=== PATIENT | male | born 1965 | race Caucasian/White ===

== ENCOUNTER 2016-11-13 04:56 | Emergency (ER) | payer OTHER ==
[~2016-11-13] VITALS: Ht 175.3 cm; Wt 74.8 kg
[2016-11-13 05:16] VITALS: BP 109/69
== END 2016-11-13 07:24 | disposition left against medical advice (07) ==
LOC: ER 05:05
DX: K08.89 Other specified disorders of teeth and supporting structures (principal); Z53.21 Procedure and treatment not carried out due to patient leaving prior to being seen by health care provider